=== PATIENT | male | born 1945 | race Caucasian/White ===

== ENCOUNTER 2019-02-09 05:04 | Inpatient (IN) | payer MEDICARE ==
[~2019-02-09] VITALS: Ht 170.2 cm; Wt 89.1 kg
--- NOTE | 2019-02-09 05:57 | NUR ---
Utilization Review Note Called the [facility] services number for pre auth after hours UR for admission, , Provided screener clinical with facility and physician tax ID. Auth was given for 3 days through 02-11-19, with follow up review and or discharge 02-14-19, to Alcira Schaefer [phone] [id number]. Authorization approval number [id number], Screener states we are in network, and approved for in network admit. VM left for Alcira Schaefer for follow up on admission info and continued stay.
--- NOTE | 2019-02-09 06:04 | NUR ---
Admission Note with Justification for Admission to [facility] Patient admitted to [facility] for protective oversight for emergency stabilization of acute psychiatric crisis. Pt admitted from: Hospital ER Mode of arrival: EMS Accompanied By: EMS Precipitating behaviors that initiated intake and admission: Pt went fishing in December and sustained many tick bites resulting in [place] Spotted Fever, pt sustained significant neurologic deficits from these bites. Gait disturbance, diminished strength, loss of memory, decreased cognition, confusion, agitation, psychosis, also has some equilibrium problems. Pt has had severe agitation with threatening behavior toward and family. Pt was still driving recently, took his car to a football game in a neighboring town, but ended up in [place] found driving around by PD. Pt was making multiple threatening phone calls to the [facility] where he sustained the tick bites, and also to his previous boss. He had been calling his boss multiple times a day harassing him, making threatening statements that he was going to shital them for firing him. Is grandiose and tangential with the [facility] and his employer. His is fearful of him, he was getting increasingly violent with her, throwing files at her posturing but never hitting her. He has had vacillation in sleep and appetite sometimes going days without eating sleeping or drinking. Description of failure of out patient attempts at stabilization in previous setting list behavior and medication trials: Pt was in ED twice in the last week for similar complaints. Behaviors and assessment findings upon admission: Pt arrives to unit alert and oriented but is tangential, with flight of ideas, grandiose, hyperverbal, suspicious and paranoid. He claims that Chi commands him to do things from inside his head, tells him to perform good deeds. He paid 800$ for weather stripping and labor for someone to install into the small fishing cabins that he sustained the tick bites from. He felt compelled by the lord to do this for free, and to hire an drywall installer for the roofing sales representative of these small cabins. The resort roofing sales representative is of no relation to him, and apparently is quite wealthy wearing giant maya rings and driving luxury vehicles, makes references to her being "connected" and to a big shot supervisor cook room who represents criminals and serial killers. Pt has poor insight and judgement, and seems as though he is having trouble with higher level executive functioning. Pt minimizes deficits greatly, making excuses for his recent failings. States he merely lost some energy but feels there is little really wrong with him. He claims his has wrongfully committed him twice now to psych facilities, in reality he spent 30 hours in the ED waiting for the DPOA to be enacted by 2 independent physicians. Family and ED psychiatrist suggest Bipolar 1, dementia, with psychosis. MRI shows white matter changes, small vessel ischemia, with cortical atrophy to indicate dementia. Plan: Admit for protective oversight for adjustment and stabilization of medications, behaviors and mood. Intense treatment regimen including groups, medication adjustments, therapy, consistent regimen for ADL's, self care, and sleep hygiene. Daily monitoring by Inpatient staff, Psychiatry, and Medical Physician.
[2019-02-09 06:17] VITALS: BP 159/76
[2019-02-09] MEDS ORDERED: MAGNESIUM HYDROXIDE 2,400 MG/30 ML ORAL.SUSP. PO PRN (06:45)
[2019-02-09] MEDS ORDERED: ACETAMINOPHEN 325 MG TABLET PO PRN (06:45)
[2019-02-09] MEDS ORDERED: MAG HYDROX/AL HYDROX/SIMETH 30 ML ORAL.SUSP PO PRN (06:45)
[2019-02-09] MEDS ORDERED: METHYL SALICYLATE/MENTHOL TOPICAL OINTMENT 57GM TUBE. TP PRN (06:45)
[2019-02-09 07:45] LABS: BASO % 1 % (0-3); EOS # 0.2 x10^3/uL (0.0-0.7); EOS % 2 % (0-3); HEMATOCRIT 40.5 % (39.0-53.0); HEMOGLOBIN 13.8 g/dL (13.0-17.5); LYMPH # 2.1 x10^3/uL (1.0-4.8); LYMPH % 23 % (24-48); MEAN CORPUSCULAR HEMOGLOBIN 31 pg (25-35); MEAN CORPUSCULAR HGB CONC 34 g/dL (31-37); MEAN CORPUSCULAR VOLUME 90 fL (79-100); MONO # 0.7 x10^3/uL (0.0-1.1); MONO % 8 % (0-9); NEUT % 66 % (31-73); PLATELET COUNT 197 x10^3/uL (140-400); RED BLOOD COUNT 4.48 x10^6/uL (4.30-5.70); RED CELL DISTRIBUTION WIDTH 14.3 % (11.5-14.5)
[2019-02-09 07:54] LABS: ALBUMIN 3.1 g/dL (3.4-5.0); CALCIUM 8.4 mg/dL (8.5-10.1); CREATININE 0.9 mg/dL (0.7-1.3); GFR 82.5; MAGNESIUM 2.1 mg/dL (1.8-2.4); POTASSIUM 3.7 mmol/L (3.5-5.1); TOTAL BILIRUBIN 0.4 mg/dL (0.2-1.0); TOTAL PROTEIN 6.1 g/dL (6.4-8.2)
[2019-02-09 07:55] LABS: VAL ACID 35 mcg/mL (50-100)
--- NOTE | 2019-02-09 09:00 | NUR ---
Patient is in the dining room for assessments and medications. He is A&O x4. Takes his meds whole. 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
[2019-02-09] MEDS ORDERED: TRAZ-120 PO (09:07)
[2019-02-09] MEDS ORDERED: SIMV20TA18 PO (09:07)
[2019-02-09] MEDS ORDERED: DIVA125C2 PO (09:07)
[2019-02-09] MEDS ORDERED: SERT50TA PO (09:07)
[2019-02-09] MEDS ORDERED: ASPI325T8 PO (09:07)
[2019-02-09] MEDS ORDERED: AMLO5TAB10 PO (09:07)
[2019-02-09] MEDS ORDERED: TAMS0.4C97 PO (09:07)
[2019-02-09] MEDS ORDERED: QUET25TA5 PO (09:07)
[2019-02-09] MEDS ORDERED: METF500T16 PO (09:07)
[2019-02-09] MEDS ORDERED: amLODIPine BESYLATE 5 MG TABLET PO ONE (09:15)
[2019-02-09] MEDS ORDERED: SERTRALINE 50 MG TABLET. PO SCH (09:30)
[2019-02-09] MEDS ORDERED: TAMSULOSIN 0.4 MG CAP.ER.24H. PO SCH (09:30)
[2019-02-09] MEDS: ASPIRIN 325 MG TABLET PO SCH (10:38)
--- NOTE | 2019-02-09 11:00 | NUR ---
PSYCHOSOCIAL ASSESSMENT ADMISSION DATE: 02/09/19 CONTACT INFORMATION: DPOA/Guardian Contact Name: Yelena Loaiza Contact Address: [address] [place] [address]; [place] [address] Contact Phone #: ETHNIC ORIGIN: REASONS FOR ADMISSION: Agitated Confusion/Disoriented Delusions Hallucinations ADDITIONAL ADMISSION COMMENTS: According to the intake, pt was admitted to the [facility] ED for agitation, aggression, not eating or sleeping, anxious, making threats towards , hallucinations, delusions, harassing his ex-boss and driving to [place]. REASON FOR ADMISSION IN PATIENT/FAMILY'S OWN WORDS: Since the tic bites, pt has been showing an increase in behaviors. PATIENT/FAMILY EXPECTATIONS FOR ADMISSION: Behavior and medication stabilization. LIVING SITUATION: Patient lives with: Spouse Other living arrangements: Contact Name: Contact Address: [address] [place] [address]; [place] [address] Contact Phone #: Contact Fax #: FAMILY RELATIONS: Marital Status: # of Marriages: 1 # of Children: 2 [facility] Family Support: Concerned Cooperative Involved in DC Planning Additional Comments r/t Family: Pt has been to his Chad for 51 years. Chad was cm in high school and pt just started in the [employer]. Together the 2 have 2 children and reports that pt has provided a great life for the family. SIGNIFICANT PSYCHIATRIC/MEDICAL HISTORY: Psychiatric/Treatment History: This is pt first psychiatric stay on [facility]. NO prior admissions have been noted per pt and pt . Pertinent Family History: Pt dtr has been diagnosed with Bipolar D/O. Pt does not have any further psych dx but medical concerns as most of his family have passed due to lung disease. Pt did report some suspicion that pt father was diagnosed later in life with having Dementia. HISTORICAL DATA: Childhood Environment: Other-see below Childhood Environment Additional Comments: Pt is 1 of 6 siblings (1 brother, 4 sisters). Pt siblings are all living but 1 sister who due to lung disease. Pt mother at the age of 74 due to a lung condition and his father at age 94. Psychological Abuse: None Additional Comments: Pt reports that pt has never been physical; however, as of late, pt is becoming more verbally aggressive and threats of physical. 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 service: [employer] for 6 years Yazidism background: No preference Sexual orientation: Heterosexual Educational Level: Graduated 12th grade in high school. Past/Present Interests/Hobbies: Fishing Financial support/resources: Social Security Monthly income: Person handling finances: Pt handles all finances at this time. Do you have a history of legal problems: N Cultural considerations: None SOCIAL RELATIONSHIPS-CURRENT/PAST: Psychiatrist: PCP: Dr. Lemon Counselor/Therapist: [facility]: Support Group: Enterprise Application Developer/Mental Health Counselor: Other relationships: Had [facility]; cancelled services d/t behaviors. STRENGTHS & WEAKNESSES: Patient's strengths: Good family support Good verbal skills Ambulatory Other patient strengths: Patient's weaknesses: Impulsive Poor relationships Verbally Aggressive Other patient weaknesses: PRELIMINARY PLAN OF TREATMENT: Preliminary plan: Dec. Hallucination/Delus Promote Coping Skill Improved Social Skills Monitor Med Effects Dec. Outbursts Other preliminary treatment comments: DISCHARGE PLANNING: Discharge planning/disposition: Other Additional discharge needs identified: Pt is questioning placement as she is concerned that she may not be able to handle pt behaviors; but also wants to give him a chance once medications are stable. NICOLASA will continue to work with pt and pt on this matter. ADDITIONAL INFORMATION: Other Pertinent Data: SW spoke with pt and pt to complete PSA. Pt at this time is very needy and requesting to make a lot of phone calls so that he can finalize business deals. SW did encourage pt to focus more on the program and being here as he, more than likely, needs to have a break from work and get back on track. Pt and pt both agree that pt has not been the same since his fishing trip and getting the tic bites. Pt reports that pt employers are done with pt as he has caused a lot of grief in the office and attempted to make deals that were not appropriate. She reports that they told him he was on a leave of absence, but one of his contractors told him to never call back again. 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 Pt reports that he bought a new car (a Mazda) in which is not his style and wants to return it. Pt confirms that pt brought a Mazda a month ago and they have made 1 car payment on it. She plans to have the car returned as pt has been driving and causing trouble for others. Pt is also banned from a fishing resort that he likes to go to due to his behaviors. Pt reports since the tic bites, pt has been more aggressive verbally but has not physically assaulted anyone. Pt reports that he his always mad at her because she will not "follow his demands" and has lost his friendships over such poor behavior. Pt did wonder about possible Dementia as she reports in the last year, pt had difficulty recalling, but figured it to be potential beginning stages. Pt reports that pt has a LTC policy that can pay up to $8k per month for placement and they do have a substantial amount in savings. Pt is looking for recommendations, while SW explained that with pt insurance, pt will have to move quickly as the minute reviews are completed and they do not feel pt is appropriate for placement, they will want pt to discharge RIC. Pt plans to meet with their senior director of global commercial technology solutions and will also participate in tx team on .
--- NOTE | 2019-02-09 11:45 | NUR ---
Patient asked staff for a blanket out of the warmer. He was told that he could have one from the dryer in a little while and that in the meantime he could use one of the several blankets that were in his room. He became angry, throwing all of his blankets on the floor and yelling "I want a fucking blanket from the warmer NOW." He then left his room and began to run down the schroeder towards the day room, continuing to yell about the blankets. Staff member intercepted him before he reached the day room and told him that if he couldn't control his temper that he could either return to his room or [facility] He continued advancing into the day room. Staff member intervened, trying to guide patient to turn around. Patient back handed staff on the arm, yelling "Don't hit me." [facility] He then began knocking on the nurses station. This financial writer went out to the patient to give him his medications. He stated "I don't belong here. My put me in another psych [facility] last night against my will. You need to get my things and let me go downstairs. I need to call my clients and my . I want to talk to the head of this hospital because I am gonna shital." This financial writer reminded patient that he was actually in an ED last night and that it was not going to be possible for him to go anywhere at this time. He continued to say "My dad told me that if a woman wants to hit like a man then she's gonna get hit like a man. If that pink demon comes anywhere near me again, I will lay her out." This financial writer told the patient that he needed to refrain from putting his hands on any of the patients or staff. Patient was given a PRN Zydis 2.5mg at that time along with his 1200 meds.
[2019-02-09] MEDS: metFORMIN 500 MG TABLET PO SCH (11:48)
[2019-02-09] MEDS: QUEtiapine 25 MG TABLET. PO SCH ×2 (12:12→17:44)
[2019-02-09 13:24] LABS: THYROID STIM HORMONE (TSH) 2.131 uIU/mL (0.358-3.740)
--- NOTE | 2019-02-09 13:41 | NUR ---
Per request of hospital MARINE PROPULSION TECHNICIAN, follow up call placed to [facility] for benefits information and to confirm authorization that was provided earlier this date. Call reference number of [id number], [facility] has a Medicare advantage HMO plan with a $295.00 co-pay on days 1-5 and a $0 co-pay for days 6-90 with a maximum out of pocket expense of $5900.00 of which $180.00 has been met. When this worker inquired about [facility] being out of network, was forwarded to the clinical intake steam meter reader to inquire about an "emergency waiver" for hospital admission. Call reference for this call was [id number]. Explained to clinical intake steam meter reader that patient had been admitted to [facility] on this date and was provided an authorization number of [id number] but concern is [facility] is out of network. Clinical steam meter reader indicated she has noted why patient has utilized an out of network provider and that this will automatically be processed for the emergency waiver.
--- NOTE | 2019-02-09 14:00 | NUR ---
Patient chose to eat his lunch [place]. 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 Redirected for a very short time, then he is back to the nurses station asking the same things.
--- NOTE | 2019-02-09 15:13 | NUR ---
Pt is wandering and pacing the unit and exit seeking, he is demanding to go downstairs, he is demanding to call his . When staff attempted to redirect pt he stated "youre on my list and youre matty youre not on this floor right now." Pt stated to social work instructor that he would "hurt her." If he saw the ROLL SCALE WORKER alone. Dr. Koo paged new orders to change PRN zyprexa zydis to 5mg q 2 hours max dose 15mg in 24 hours. Ativan 0.5mg q 2 hours PRN max dose 1.5mg in 24 hours
[2019-02-09] MEDS: LORazepam 0.5 MG TABLET PO PRN (15:24)
--- NOTE | 2019-02-09 15:26 | NUR ---
[address] would not scan
[2019-02-09 15:53] VITALS: BP 145/73
--- NOTE | 2019-02-09 16:17 | NUR ---
Patient continues to knock on the nurses station window. Staff removed patients notebook from him because he kept making threats to staff. He keeps asking to have it back. Staff told him that he couldn't have it at this time. He stated "You can't tell me what I can and can't do." Staff told patient that he needed to stop making threats. He stated " I don't make threats, I just do them."
--- NOTE | 2019-02-09 18:32 | NUR ---
Discussed ordering EKG with Dr. Koo to establish baseline related to psychotropic medication useage. Ordered for 02/[address] Koo.
[2019-02-09] MEDS: TAMSULOSIN 0.4 MG CAP.ER.24H. PO SCH (21:00)
[2019-02-09] MEDS: SIMVASTATIN 20 MG TABLET PO SCH (21:00)
[2019-02-09] MEDS: traZODone 50 MG TABLET. PO SCH (21:00)
[2019-02-09] MEDS: DIVALPROEX 125 MG CAP.SPRINK PO SCH (21:00)
--- NOTE | 2019-02-09 21:38 | PDOC ---
Exam Note: Leo Note: Please also refer to the separate dictated note~for this date of service dictated separately. Discussed the patient with Nursing staff reviewed the chart.~Reviewed interim history and current functioning. Reviewed vital signs,~Labs/ Radiology~and current medications noted below. Continue current treatment with the changes noted in the dictated addendum note Assessment: Vital Signs/I&O: Vital Signs Date Time Temp Pulse Resp B/P (MAP) Pulse Ox O2 Delivery O2 Flow Rate FiO2 02/09/19 15:53 97.4 67 20 145/73 (97) 97 02/09/19 06:17 Room Air I & O 02/08/19 02/08/19 02/09/19 15:00 23:00 07:00 Intake Total 0 ml Balance 0 ml Labs: Laboratory Tests Test 02/09/19 07:19 02/09/19 07:37 02/09/19 19:07 White Blood Count 9.0 x10^3/uL (4.0-11.0) Red Blood Count 4.48 x10^6/uL (4.30-5.70) Hemoglobin 13.8 g/dL (13.0-17.5) Hematocrit 40.5 % (39.0-53.0) Mean Corpuscular Volume 90 fL (79-100) Mean Corpuscular Hemoglobin 31 pg (25-35) Mean Corpuscular Hemoglobin Concent 34 g/dL (31-37) Red Cell Distribution Width 14.3 % (11.5-14.5) Platelet Count 197 x10^3/uL (140-400) Neutrophils (%) (Auto) 66 % (31-73) Lymphocytes (%) (Auto) 23 % (24-48) L Monocytes (%) (Auto) 8 % (0-9) Eosinophils (%) (Auto) 2 % (0-3) Basophils (%) (Auto) 1 % (0-3) Neutrophils # (Auto) 6.0 x10^3uL (1.8-7.7) Lymphocytes # (Auto) 2.1 x10^3/uL (1.0-4.8) Monocytes # (Auto) 0.7 x10^3/uL (0.0-1.1) Eosinophils # (Auto) 0.2 x10^3/uL (0.0-0.7) Basophils # (Auto) 0.0 x10^3/uL (0.0-0.2) Erythrocyte Sedimentation Rate 3 (0-15) Sodium Level 142 mmol/L (136-145) Potassium Level 3.7 mmol/L (3.5-5.1) Chloride Level 106 mmol/L (98-107) Carbon Dioxide Level 28 mmol/L (21-32) Anion Gap 8 (6-14) Blood Urea Nitrogen 15 mg/dL (8-26) Creatinine 0.9 mg/dL (0.7-1.3) Estimated GFR (Cockcroft-Gault) 82.5 BUN/Creatinine Ratio 17 (6-20) Glucose Level 152 mg/dL (70-99) H Calcium Level 8.4 mg/dL (8.5-10.1) L Magnesium Level 2.1 mg/dL (1.8-2.4) Iron Level 58 ug/dL (65-175) L Total Iron Binding Capacity 227 ug/dL (250-450) L Iron Saturation 26 % (15-34) Total Bilirubin 0.4 mg/dL (0.2-1.0) Aspartate Amino Transferase (AST) 18 U/L (15-37) Alanine Aminotransferase (ALT) 24 U/L (16-63) Alkaline Phosphatase 51 U/L (46-116) Total Protein 6.1 g/dL (6.4-8.2) L Albumin 3.1 g/dL (3.4-5.0) L Albumin/Globulin Ratio 1.0 (1.0-1.7) Triglycerides Level 43 mg/dL (0-150) Cholesterol Level 85 mg/dL (0-200) LDL Cholesterol, Calculated 40 mg/dL (0-100) VLDL Cholesterol, Calculated 8 mg/dL (0-40) Non-HDL Cholesterol Calculated 48 mg/dL (0-129) HDL Cholesterol 37 mg/dL (40-60) L Cholesterol/HDL Ratio 2.0 Thyroid Stimulating Hormone (TSH) 2.131 uIU/mL (0.358-3.740) Valproic Acid Level 35 mcg/mL (50-100) L Valproic Acid Last Dose Date 02/08/19 Valproic Acid Last Dose Time 2100 Glucose (Fingerstick) 127 mg/dL (70-99) H 116 mg/dL (70-99) H Current Medications: Meds: Current Medications Medications (Trade) Dose Ordered Sig/Janet Route PRN Reason Start Time Stop Time Status Last Admin Dose Admin Olanzapine (ZyPREXA ZYDIS) 2.5 mg PRN Q2HR PRN PO PSYCHOSIS 02/09/19 06:45 02/09/19 15:18 DC 02/09/19 11:45 Aspirin (Cricket Aspirin) 325 mg DAILY PO 02/09/19 09:30 02/09/19 10:38 Metformin HCl (Glucophage) 500 mg BIDWMEALS PO 02/09/19 17:00 02/09/19 11:48 Quetiapine Fumarate (SEROquel) 25 mg Q6HRS PO 02/09/19 12:00 02/09/19 18:31 DC 02/09/19 17:44 Sertraline HCl (Zoloft) 50 mg DAILY PO 02/09/19 09:30 02/09/19 18:31 DC 02/09/19 10:39 Amlodipine Besylate (Norvasc) 5 mg 1X ONCE PO 02/09/19 09:15 02/09/19 09:16 DC 02/09/19 10:39 Olanzapine (ZyPREXA ZYDIS) 5 mg PRN Q2HR PRN PO PSYCHOSIS 02/09/19 15:19 02/09/19 15:24 Lorazepam (Ativan) 0.5 mg PRN Q2HR PRN PO ANXIETY / AGITATION 02/09/19 15:19 02/09/19 15:24 I have reviewed the current psychotropics carefully including drug interactions. Risk benefit ratio favors no change other than as noted in my dictated progress note. GUERO KRUEGER MD Feb 09, 2019 21:38
--- NOTE | 2019-02-09 22:08 | NUR ---
Nursing Note Pt asleep barely awakens to my assessment. laying in bed on his right side. Will attempt to medicate once he arouses.
[2019-02-09 23:07] LABS: THYROXINE 5.3 ug/dL (4.5-12.0)
[2019-02-10 05:11] VITALS: BP 135/76
--- NOTE | 2019-02-10 08:01 | NUR ---
Patient in dining room and is being intrusive with peers. He is loudly complaining that "this place doesn't care for veterans, they treat us like dogs". He is approaching male peers and attempting to "rally them into a revolt" and wanting them to complain to their congressman and return to the [place]. He is fixated on being a , the and that men are superior to women. When staff attempted to verbally redirect them he became very rude and verbally demeaning to all the "women" in the room. Patient was disruptive and not able to be redirected in the dining room so he was assisted to the [facility] to eat his breakfast alone. In the [facility] he began calling the female COIN MACHINE MECHANIC a dumb broad and other insults. Patient behaviors and sarcasm escalating in hallway. Provided patient PRN zydis and PRN ativan per order for agitation/aggression towards staff. Will continue to monitor. Addendum: 02/10/19 at 1046 by CESAR HIGGINBOTHAM RN PRN medications effective. Patient has calmed down and is currently sleeping on the mattress in the quiet room with the door open.
[2019-02-10] MEDS: amLODIPine BESYLATE 5 MG TABLET PO SCH (08:23)
[2019-02-10] MEDS: LORazepam 0.5 MG TABLET PO PRN ×2 (08:23→19:57)
[2019-02-10] MEDS: risperiDONE 0.25 MG TABLET. PO SCH ×3 (08:23→17:14)
[2019-02-10] MEDS: metFORMIN 500 MG TABLET PO SCH ×2 (08:24→17:14)
[2019-02-10] MEDS: TAMSULOSIN 0.4 MG CAP.ER.24H. PO SCH (08:24)
[2019-02-10] MEDS: DIVALPROEX 125 MG CAP.SPRINK PO SCH ×2 (08:24→19:57)
[2019-02-10] MEDS: ASPIRIN 325 MG TABLET PO SCH (08:24)
--- NOTE | 2019-02-10 10:18 | NUR ---
WEEKLY NOTE: Pt , Yelena Hartman, participated in tx team via telephone. Yelena reports that she just spoke to nursing about pt bx and is appalled about his actions. Pt reports that since the tic bites, he's abrasive, easily agitated, intrusive and odd behaviors within their home and the neighborhood. Pt is eating 75-100% of meals and sleeping on average 6 hours. Pt will have his Seroquel discontinued and start Risperdal. Pt is looking for placement and SW will guide her through the process.
--- NOTE | 2019-02-10 10:39 | NUR ---
Nurse spoke with patients at length regarding patients current behaviors and medication changes. Spouse expressed concern over patients mental status changes, which she reported began in jan 2019 and have escalated since then. During conversation it was revealed that many of the adverse behaviors we have observed were also happening in the home. According to the spouse, these behaviors are very far from patients normal baseline. After rounds last night, Dr. Koo made some medication changes. He discontinued the seroquel and zoloft and started Risperdal 0900,1300,1700. Medication changes were reviewed with /DPOA.
--- NOTE | 2019-02-10 14:24 | NUR ---
Patient asking to make phone calls to his "clients". Patient has call restrictions noted in his consents in chart. Nurse advised patient he was only allowed to call his and he said "I won't call her for a long time" in an angry voice and then walked away.
[2019-02-10 15:34] VITALS: BP 144/71
--- NOTE | 2019-02-10 18:02 | HP ---
ADMIT DATE: 02/09/2019 This late entry 02/09/2019 covers elements not covered in my initial note. I met with the patient evening of 02/09/2019. Previously discussed with Eladia WALDROP around 2:00 a.m. on 02/09/2019 after the patient was referred to us from [facility] Emergency Room where he presented with his family on account of significant psychotic symptoms, pato with some short-term memory deficits all of which had exacerbated since he developed Jen[place] spotted fever post-tick bites on 12/12/2018 while he had gone fishing in [place]. The patient had been in the Emergency Room since 02/07/2019. He was agitated, aggressive, paranoid, threatening his verbally. He was increasingly anxious, not eating or sleeping. Symptoms were unmanageable, dangerous, out of control, resulting in this referral for psychiatric stabilization. The stated the patient has been extremely grandiose, talking to strangers very different from how he typically was baseline. Intrusive walking into the neighbor's homes without knocking or asking permission, extremely aggressive verbally with his and she reported "he is not the man he was." Reportedly, he has also been harassing his ex-boss driving to [place], getting confused, unaware at times where he is. Other times reasonably oriented. The DPOA status was activated and he was referred for inpatient psychiatric stabilization. CHIEF COMPLAINT: "I need to leave." HISTORY OF PRESENT ILLNESS: The patient according to the has always had a rather abrasive personality, but over the past 1 year he has been more manic, grandiose, hyperverbal, irritable, angry. This has worsened significantly since the tick bite of 12/12/2018 and the Jenner spotted fever diagnosis. Organic workup including imaging studies have been unremarkable. He has had significant sleep disturbance, some appetite disturbance. No active suicidal or homicidal ideation though the way he has been getting confused and driving off he has well posed a danger to himself and others. PAST PSYCHIATRIC HISTORY: As above. MEDICAL HISTORY: Positive for type 2 diabetes mellitus, hypertension, hyperlipidemia, Jenner spotted fever, BPH. CODE STATUS: Full code. ALLERGIES: Negative. DIET: Regular, diabetic, takes medications whole, ambulates independently. CURRENT PSYCHOTROPICS: Depakote 250 b.i.d. The patient was on Seroquel at admission and this is being changed to Risperdal, trazodone 50 mg at bedtime. He was also on Zoloft, which is being discontinued consequent to his pato. FAMILY HISTORY: Noncontributory. SOCIAL HISTORY: The patient is . 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 No alcohol or drug abuse, physical, sexual or elder abuse history is noted. He is not known to be a perpetrator. REACTION TO HOSPITALIZATION: The patient is resistive to this, but able to understand the need for this consequent to his mental status changes, "I want to get my mind better." REVIEW OF SYSTEMS: No CV, , pulmonary, eye, ENT system symptoms on review. MENTAL STATUS EXAMINATION: The patient was seen individually and had been called by the nursing staff several times during the day on 02/09/2019 due to his marked agitation, aggression. He was threatening to punch staff and hurt them. He did receive PRNs and then was calmer in the evening, quite sedated as I met with him. Speech despite this can be little pressured. Abstraction fair, computation impaired, language function intact, attention span short. Mood and affect remains labile and grandiose at times, paranoid, suspicious. LABORATORY DATA: Reviewed. IMPRESSION: Bipolar disorder, manic with psychotic features; anxiety disorder, unspecified; impulse control disorder, unspecified. Rest diagnoses as noted above. PLAN: Admit to Geropsychiatry Unit at [facility]. I will see the patient daily individually from a psychiatric standpoint. Medical followup per Dr. Clancy. We will also have a Neurology consult with Dr. Ding given his mental status changes with Jenner spotted fever. Change the Seroquel to Risperdal 0.25 mg 3 times a day. Check labs level on the Depakote. Adjust as clinically indicated. Estimated length of stay 10-12 days. DISPOSITION: Will have to be decided once he is stabilized. MAN Pamela KRUEGER MD DR: GERALDINE/steven JOB#: [id number] / [id number]
[2019-02-10] MEDS: SIMVASTATIN 20 MG TABLET PO SCH (19:57)
[2019-02-10] MEDS: traZODone 50 MG TABLET. PO SCH (19:57)
--- NOTE | 2019-02-10 21:35 | PDOC ---
Exam Note: Leo Note: Please also refer to the separate dictated note~for this date of service dictated separately.~Patient seen individually. Discussed the patient with Nursing staff reviewed the chart.~Reviewed interim history and current functioning. Reviewed vital signs,~Labs/ Radiology~and current medications noted below. Continue current treatment with the changes noted in the dictated addendum note Assessment: Vital Signs/I&O: Vital Signs Date Time Temp Pulse Resp B/P (MAP) Pulse Ox O2 Delivery O2 Flow Rate FiO2 02/10/19 15:34 98.0 84 16 144/71 (95) 98 02/09/19 06:17 Room Air I & O 02/09/19 02/09/19 02/10/19 15:00 23:00 07:00 Intake Total 840 ml 60 ml 240 ml Balance 840 ml 60 ml 240 ml Labs: Laboratory Tests Test 02/10/19 07:55 Glucose (Fingerstick) 106 mg/dL (70-99) H Current Medications: Meds: Current Medications Medications (Trade) Dose Ordered Sig/Janet Route PRN Reason Start Time Stop Time Status Last Admin Dose Admin Amlodipine Besylate (Norvasc) 5 mg DAILY PO 02/10/19 09:00 02/10/19 08:23 Risperidone (RisperDAL) 0.25 mg TID@0900,1300,1700 PO 02/10/19 09:00 02/10/19 17:14 I have reviewed the current psychotropics carefully including drug interactions. Risk benefit ratio favors no change other than as noted in my dictated progress note. Diagnosis: Problems: (1) Bipolar disorder, current episode manic severe with psychotic features (2) Anxiety disorder (3) Impulse control disorder GUERO KRUEGER MD Feb 10, 2019 21:35
--- NOTE | 2019-02-11 00:24 | NUR ---
Patient was in room at time of medication administration and assessments. Patient was calm, cooperative and compliant that that time. Patient was argumentative with some of the CNAs and taking his pants off in the schroeder. Patient was instructed to put them back on and go back to his room. Patient has been wandering all evening. Asked to take a shower so CNAs assisted him with such in an effort to help him sleep for the evening. No other notable behaviors at this time. Addendum: 02/11/19 at 0027 by NILES SHRESTHA RN PRN Ativan given with HS medications (reported patient is manipulative, has delusions, gets aggravated/rude/yelling) Patient states he knows that he needs his medications. PRN warranted for above behaviors/
[2019-02-11 05:31] VITALS: BP 157/84
--- NOTE | 2019-02-11 08:03 | CONS ---
DATE OF CONSULTATION: 02/10/2019 REASON FOR CONSULTATION: Medical management. HISTORY OF PRESENT ILLNESS: The patient is a 73-year-old male patient who was referred to the [facility] from the Emergency Department of [facility] on account of being extremely agitated, aggressive related to recent [place] spotted fever, diagnosed with paranoia. He is not eating, not sleeping. He is anxious, making threats towards his , hallucinating, having delusions harrassing his ex-boss, driving to [place] for no reason, has been demanding rude, all this in a background of psychosis, unspecified bipolar with psychotic features, possible cognitive disorder. PAST MEDICAL HISTORY: Significant for type 2 diabetes, hypertension, hyperlipidemia, benign prostatic hypertrophy, recent [place] spotted fever that he acquired while on a fishing trip to [place]. FAMILY HISTORY: Unremarkable. SOCIAL HISTORY: He is , has a son and a daughter, does not smoke, drinks alcohol occasionally. Does not use any drugs. 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 ALLERGIES: He has no known drug allergies. MEDICATIONS: He is currently on following medications: He is on Flomax 0.4 mg at bedtime, simvastatin 20 mg at bedtime, amlodipine besylate 5 mg once a day, aspirin 325 mg once a day, divalproex sodium 250 mg twice a day, sertraline 50 mg daily, trazodone 50 mg at bedtime, quetiapine fumarate for Seroquel 25 mg every 6 hours, metformin 500 mg twice a day. PHYSICAL EXAMINATION: GENERAL: On examining him, he looked well and was clearly in no apparent respiratory distress. No pallor, jaundice, cyanosis or thyromegaly. No jugular venous distention or limb edema. VITAL SIGNS: Her heart rate was 84, blood pressure was 144/71, temperature was 98, respiratory rate was 16, and oxygen saturation was 98%. HEAD, EYES, EARS, NOSE AND THROAT: Showed normocephalic, atraumatic. NECK: Supple. HEART: Showed normal first and second heart sounds with no gallop, rub or murmur. CHEST: Clear to auscultation. No crepitation or rhonchi. ABDOMEN: Distended, soft, nontender. NEUROLOGIC: He is awake, alert, responding appropriately. All cranial nerves intact. EXTREMITIES: He moves extremities without difficulty, ambulates without assistance or assistive devices. LABORATORY DATA: Showed a white cell count of 9000, hemoglobin 14, hematocrit 41, MCV 90, and platelet count of 197,000 with normal manual differential. His sedimentation rate was 3 mm per hour. Serum sodium 142, potassium 3.7, chloride 106, bicarbonate 28, anion gap of 8, BUN 15, creatinine 0.9, estimated GFR was 82 mL per minute, his glucose 152. Hemoglobin A1c was 6%. Calcium was 8.4, magnesium 2.1. Total bilirubin, AST, ALT, alkaline phosphatase were normal. Total protein was 6.1, albumin 3.1. Serum triglycerides were 43, total cholesterol 85, LDL was 40, the HDL cholesterol was 37 and cholesterol to HDL cholesterol was 2, B12 was 533 pg/mL. His 25-hydroxy vitamin D 65 ng/mL. His TSH, T3, total T4, total T3 are all within normal range. Serum iron was 58, TIBC was 227 and iron saturation was 26. His valproic acid was 35 ng/mL and his treponema pallidum antibodies were nonreactive. IMPRESSION: In summary, this is a 73-year-old male patient who was referred from the Emergency Department of [facility] on account of being agitated, aggressive, this to be related to recent [place] spotted fever, diagnosis of paranoia, is not eating, not sleeping, anxious, making threats towards his , hallucinating and delusional, harrassing the ex-boss, driving to [place] for no reason and all this in a background of psychosis, unspecified bipolar disorder with psychotic features and possible cognitive impairment. Medically, he seems to be all in all stable. All his vital signs and lab works are well within acceptable range. I obviously will follow all his lab works and make any necessary recommendation. Thank you, Dr. Koo for allowing me to participate in the care of this patient. LEONIDES KRAUS MD DR: GRETCHEN/steven JOB#: [id number] / [id number]
[2019-02-11] MEDS: metFORMIN 500 MG TABLET PO SCH ×2 (08:07→16:42)
[2019-02-11] MEDS: DIVALPROEX 125 MG CAP.SPRINK PO SCH ×2 (08:08→19:54)
[2019-02-11] MEDS: ASPIRIN 325 MG TABLET PO SCH (08:08)
[2019-02-11] MEDS: amLODIPine BESYLATE 5 MG TABLET PO SCH (08:08)
[2019-02-11] MEDS: TAMSULOSIN 0.4 MG CAP.ER.24H. PO SCH (08:08)
[2019-02-11] MEDS: risperiDONE 0.25 MG TABLET. PO SCH ×3 (08:09→16:43)
--- NOTE | 2019-02-11 10:50 | NUR ---
Patient was in the dining room during morning rounding, took medications, allowed for morning assessment. Patient has been calm, able to redirect. Patient did ask to use this morning to call his old job. Received on report that patient is no longer employed by that job and the employer asked patient not to call there anymore earlier this week. Patient said he slept well, no agitation noted at this time. Will continue to monitor.
[2019-02-11] MEDS: LORazepam 0.5 MG TABLET PO PRN ×3 (12:38→17:25)
--- NOTE | 2019-02-11 12:44 | NUR ---
Patient was a little anxious, trying to tell patient's during lunch that "the pumpkin doesn't like [place]'s and is part of the [employer]. PRN atelvis given @9322. Patient is trying to meet with social work now, will continue to monitor.
[2019-02-11] MEDS ORDERED: DIVALPROEX 125 MG CAP.SPRINK PO SCH (13:00)
--- NOTE | 2019-02-11 15:03 | NUR ---
Patient has been very anxious, wanting nails to be cut. Wanting to talk to the forensic social worker and knocking on the office door repeatedly. Patient is being suspicious. Unable to scan wrist band at this time. PRN Ativan and Zyprexa given @1500. Patient is pacing halls. Will continue to monitor.
[2019-02-11 15:56] VITALS: BP 145/75
--- NOTE | 2019-02-11 16:16 | NUR ---
SW attempted multiple times to complete pt concurrent review for continued stay. SW attempted first at 1454 and again at 1540 and left message for Alcira Schaefer at [phone]. It was noted on her voicemail that the office is open until 1700 LIFE CLAIMS EXAMINER. Also on the voicemail, a fax number for discharges was noted as ( [phone]. NICOLASA went ahead and printed out all of pt psychiatry and nursing notes to show pt behaviors on the unit, and faxed the number noted in Alcira's voicemail. The fax confirmation page as received and NICOLASA has kept the packet on her desk for future reference. Pt authorization number is [id number].
[2019-02-11] MEDS ORDERED: risperiDONE 0.5 MG TABLET. PO ONE (17:15)
--- NOTE | 2019-02-11 18:12 | NUR ---
Patient spoke to earlier on the phone, told patient that primary care dr is the one who sent him here. Patient was upset, wanting to call primary care doctor. Patient did go to dinner, PRN Ativan given @1725. Patient is now sleeping. Will continue to monitor.
[2019-02-11] MEDS: traZODone 50 MG TABLET. PO SCH (19:54)
[2019-02-11] MEDS: SIMVASTATIN 20 MG TABLET PO SCH (19:54)
--- NOTE | 2019-02-11 21:28 | PDOC ---
Exam Note: Leo Note: Please also refer to the separate dictated note~for this date of service dictated separately.~Patient seen individually. Discussed the patient with Nursing staff reviewed the chart.~Reviewed interim history and current functioning. Reviewed vital signs,~Labs/ Radiology~and current medications noted below. Continue current treatment with the changes noted in the dictated addendum note Assessment: Vital Signs/I&O: Vital Signs Date Time Temp Pulse Resp B/P (MAP) Pulse Ox O2 Delivery O2 Flow Rate FiO2 02/11/19 15:56 97.9 65 16 145/75 (98) 99 02/09/19 06:17 Room Air I & O 02/10/19 02/10/19 02/11/19 14:59 22:59 06:59 Intake Total 840 ml 480 ml 240 ml Balance 840 ml 480 ml 240 ml Labs: Laboratory Tests Test 02/11/19 07:31 02/11/19 16:41 Glucose (Fingerstick) 97 mg/dL (70-99) 102 mg/dL (70-99) H Current Medications: Meds: Current Medications Medications (Trade) Dose Ordered Sig/Janet Route PRN Reason Start Time Stop Time Status Last Admin Dose Admin Divalproex Sodium (Depakote Sprinkles) 500 mg BID PO 02/11/19 21:00 02/11/19 19:54 Divalproex Sodium (Depakote Sprinkles) 250 mg 1X PO 02/11/19 13:00 02/11/19 12:38 Risperidone (RisperDAL) 0.5 mg 1X ONCE PO 02/11/19 17:15 02/11/19 17:16 DC 02/11/19 17:25 I have reviewed the current psychotropics carefully including drug interactions. Risk benefit ratio favors no change other than as noted in my dictated progress note. Diagnosis: Problems: (1) Anxiety disorder (2) Impulse control disorder (3) Bipolar disorder, current episode manic severe with psychotic features GUERO KRUEGER MD Feb 11, 2019 21:28
--- NOTE | 2019-02-11 22:33 | NUR ---
Pt was sitting up in chair in the day room, sleeping at shift change. Pt calm but drowsy this evening. Pt cooperative with assessment and compliant with medications administered whole.
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
[2019-02-12 05:40] VITALS: BP 154/81
[2019-02-12] MEDS: ASPIRIN 325 MG TABLET PO SCH (08:02)
[2019-02-12] MEDS: DIVALPROEX 125 MG CAP.SPRINK PO SCH ×2 (08:02→20:34)
[2019-02-12] MEDS: metFORMIN 500 MG TABLET PO SCH ×2 (08:02→16:39)
[2019-02-12] MEDS: TAMSULOSIN 0.4 MG CAP.ER.24H. PO SCH (08:03)
[2019-02-12] MEDS: amLODIPine BESYLATE 5 MG TABLET PO SCH (08:03)
[2019-02-12] MEDS: risperiDONE 0.5 MG TABLET. PO SCH (08:03)
[2019-02-12] MEDS: LORazepam 0.5 MG TABLET PO PRN ×2 (08:56→11:55)
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
--- NOTE | 2019-02-12 12:01 | NUR ---
Patient approached another nurse and mentioned that he was "upset with certain care givers, also that he needed to leave right at noon." The nurse spoke to Dr. Koo, both Ativan and Zyprexa given @1155. Per Dr. Koo, a repeat Ativan has been ordered if needed. Patient is now in the dining room, will continue to monitor.
[2019-02-12] MEDS ORDERED: LORazepam 0.5 MG TABLET PO PRN (12:15)
--- NOTE | 2019-02-12 14:59 | NUR ---
Attempted to meet and complete Activity Therapy Assessment at 0930 and 1315; however, Pt. sleeping at both times.
[2019-02-12 15:39] VITALS: BP 148/80
[2019-02-12] MEDS: risperiDONE 0.25 MG TABLET. PO SCH (16:39)
[2019-02-12] MEDS: traZODone 50 MG TABLET. PO SCH (20:34)
[2019-02-12] MEDS: SIMVASTATIN 20 MG TABLET PO SCH (20:34)
[2019-02-12] MEDS ORDERED: traZODone 50 MG TABLET. PO PRN (22:45)
--- NOTE | 2019-02-12 23:15 | PDOC ---
Exam Note: Leo Note: Please also refer to the separate dictated note~for this date of service dictated separately.~Patient seen individually. Discussed the patient with Nursing staff reviewed the chart.~Reviewed interim history and current functioning. Reviewed vital signs,~Labs/ Radiology~and current medications noted below. Continue current treatment with the changes noted in the dictated addendum note Assessment: Vital Signs/I&O: Vital Signs Date Time Temp Pulse Resp B/P (MAP) Pulse Ox O2 Delivery O2 Flow Rate FiO2 02/12/19 15:39 97.4 67 18 148/80 (102) 98 02/09/19 06:17 Room Air I & O 02/11/19 02/11/19 02/12/19 15:00 23:00 07:00 Intake Total 720 ml 560 ml Balance 720 ml 560 ml Labs: Laboratory Tests Test 02/12/19 07:17 Glucose (Fingerstick) 105 mg/dL (70-99) H Current Medications: Meds: Current Medications Medications (Trade) Dose Ordered Sig/Janet Route PRN Reason Start Time Stop Time Status Last Admin Dose Admin Risperidone (RisperDAL) 0.5 mg DAILY PO 02/12/19 09:00 02/12/19 08:03 Risperidone (RisperDAL) 0.75 mg DAILYWSUP PO 02/12/19 17:00 02/12/19 16:39 I have reviewed the current psychotropics carefully including drug interactions. Risk benefit ratio favors no change other than as noted in my dictated progress note. Diagnosis: Problems: (1) Anxiety disorder (2) Impulse control disorder (3) Bipolar disorder, current episode manic severe with psychotic features GUERO KRUEGER MD Feb 12, 2019 23:15
--- NOTE | 2019-02-13 00:07 | NUR ---
Pt walking in hallway at shift change. Pt calm, interactive and appropriate this evening, no further agitation or verbal aggression noted thus far. Pt cooperative with assessment and compliant with medications administered whole.
[2019-02-13 05:50] VITALS: BP 120/72
[2019-02-13] MEDS: metFORMIN 500 MG TABLET PO SCH ×2 (08:13→16:54)
[2019-02-13] MEDS: ASPIRIN 325 MG TABLET PO SCH (08:13)
[2019-02-13] MEDS: risperiDONE 0.5 MG TABLET. PO SCH (08:13)
[2019-02-13] MEDS: TAMSULOSIN 0.4 MG CAP.ER.24H. PO SCH (08:13)
[2019-02-13] MEDS: amLODIPine BESYLATE 5 MG TABLET PO SCH (08:14)
[2019-02-13] MEDS: DIVALPROEX 125 MG CAP.SPRINK PO SCH ×2 (08:14→21:22)
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
--- NOTE | 2019-02-13 15:25 | NUR ---
Patient is in the dining room for assessments and medications. He is calm, cooperative and compliant. Still continuing to try to help his peers, but is able to be redirected today. Participated in groups today and spent a good amount of time in the day room. Denies pain, denies SI/HI.
[2019-02-13 15:41] VITALS: BP 138/81
[2019-02-13] MEDS: risperiDONE 0.25 MG TABLET. PO SCH (16:54)
--- NOTE | 2019-02-13 20:32 | PDOC ---
Exam Note: Leo Note: Please also refer to the separate dictated note~for this date of service dictated separately.~Patient seen individually. Discussed the patient with Nursing staff reviewed the chart.~Reviewed interim history and current functioning. Reviewed vital signs,~Labs/ Radiology~and current medications noted below. Continue current treatment with the changes noted in the dictated addendum note Assessment: Vital Signs/I&O: Vital Signs Date Time Temp Pulse Resp B/P (MAP) Pulse Ox O2 Delivery O2 Flow Rate FiO2 02/13/19 15:41 97.0 72 16 138/81 (100) 97 02/13/19 05:50 Room Air I & O 02/12/19 02/12/19 02/13/19 15:00 23:00 07:00 Intake Total 960 ml 240 ml 60 ml Balance 960 ml 240 ml 60 ml Labs: Laboratory Tests Test 02/13/19 07:26 02/13/19 17:00 Glucose (Fingerstick) 129 mg/dL (70-99) H 109 mg/dL (70-99) H Current Medications: I have reviewed the current psychotropics carefully including drug interactions. Risk benefit ratio favors no change other than as noted in my dictated progress note. Diagnosis: Problems: (1) Anxiety disorder (2) Impulse control disorder (3) Bipolar disorder, current episode manic severe with psychotic features GUERO KRUEGER MD Feb 13, 2019 20:32
[2019-02-13] MEDS: traZODone 50 MG TABLET. PO SCH (21:22)
[2019-02-13] MEDS: SIMVASTATIN 20 MG TABLET PO SCH (21:22)
--- NOTE | 2019-02-13 22:40 | NUR ---
Nursing Note The patient was confused and concerned about other patients while he was in the day room but was compliant and appropriate during this nurse while in his room. The patient took his medication whole.
[2019-02-14 06:12] VITALS: BP 149/65
[2019-02-14 07:26] LABS: BASO # 0.1 x10^3/uL (0.0-0.2); BASO % 1 % (0-3); EOS # 0.2 x10^3/uL (0.0-0.7); EOS % 3 % (0-3); HEMATOCRIT 43.1 % (39.0-53.0); HEMOGLOBIN 14.6 g/dL (13.0-17.5); LYMPH # 1.6 x10^3/uL (1.0-4.8); LYMPH % 18 % (24-48); MEAN CORPUSCULAR HEMOGLOBIN 31 pg (25-35); MEAN CORPUSCULAR HGB CONC 34 g/dL (31-37); MEAN CORPUSCULAR VOLUME 91 fL (79-100); MONO # 0.8 x10^3/uL (0.0-1.1); MONO % 9 % (0-9); NEUT # 6.3 x10^3uL (1.8-7.7); NEUT % 70 % (31-73); PLATELET COUNT 196 x10^3/uL (140-400); RED BLOOD COUNT 4.74 x10^6/uL (4.30-5.70); RED CELL DISTRIBUTION WIDTH 14.5 % (11.5-14.5); WHITE BLOOD COUNT 8.9 x10^3/uL (4.0-11.0)
[2019-02-14 07:37] LABS: ALBUMIN 3.2 g/dL (3.4-5.0); ALK PHOS 55 U/L (46-116); ALT (SGPT) 25 U/L (16-63); ANION GAP 11 (6-14); AST (SGOT) 17 U/L (15-37); BLOOD UREA NITROGEN 19 mg/dL (8-26); BUN/CREATININE RATIO 24 (6-20); CALCIUM 8.7 mg/dL (8.5-10.1); CARBON DIOXIDE 27 mmol/L (21-32); CHLORIDE 106 mmol/L (98-107); CREATININE 0.8 mg/dL (0.7-1.3); GFR 94.5; GLUCOSE 127 mg/dL (70-99); SODIUM 144 mmol/L (136-145); TOTAL BILIRUBIN 0.5 mg/dL (0.2-1.0); TOTAL PROTEIN 6.5 g/dL (6.4-8.2)
[2019-02-14 07:52] LABS: VAL ACID 48 mcg/mL (50-100)
[2019-02-14] MEDS: ASPIRIN 325 MG TABLET PO SCH (08:26)
[2019-02-14] MEDS: metFORMIN 500 MG TABLET PO SCH ×2 (08:27→17:29)
[2019-02-14] MEDS: amLODIPine BESYLATE 5 MG TABLET PO SCH (08:27)
[2019-02-14] MEDS: risperiDONE 0.5 MG TABLET. PO SCH (08:27)
[2019-02-14] MEDS: DIVALPROEX 125 MG CAP.SPRINK PO SCH ×2 (08:28→19:34)
[2019-02-14] MEDS: TAMSULOSIN 0.4 MG CAP.ER.24H. PO SCH (08:28)
--- NOTE | 2019-02-14 10:25 | NUR ---
Pt came into SW office to discuss his need to make a couple phone calls. SW explained to pt that he is not making any phone calls and asked what he wanted. Pt reports that he needs to get [facility] [place] and order 29 Twin Beds and 4 Garber size a beds with 3 foam mattresses and 1 regular mattress. Pt reports that these beds need to be delivered to [facility], [address] [place] [address] in [place], [place]. "I don't want to order anything expensive, but nothing too cheap either". SW double checked that address and found that [facility] [place], [place] pt was when he received the tic bites. Pt was correct on the address and location of the Resort. SW will notify pt of pt request in the event pt attempts to complete this request once discharged from [facility].
--- NOTE | 2019-02-14 10:45 | NUR ---
NICOLASA completed pt concurrent review. At this time, pt is only approved for 2 days with an update scheduled for Friday 02/16. NICOLASA will plan to notify in the event that she decides that placement needs to happen and to get the process started.
--- NOTE | 2019-02-14 13:16 | NUR ---
Patient is in the dining room for medications and assessment. He is calm, cooperative and compliant. He remains overly social and interactive with his peers, but has been able to be redirected. Asked a few times at the beginning of shift to use the phone to call [place] Jo[place]. This resume writer told him he was unable to make that phone call, so he proceeded to go to public health social worker office and ask her multiple times as well. Other than that, he was appropriate with phone use. Asked to call his a couple of times, and remained in day room so he could be supervised, without issue. No agitation, denies pain, denies SI/HI.
[2019-02-14 16:19] VITALS: BP 147/79
[2019-02-14] MEDS: risperiDONE 0.25 MG TABLET. PO SCH (17:29)
[2019-02-14] MEDS: SIMVASTATIN 20 MG TABLET PO SCH (19:34)
[2019-02-14] MEDS: traZODone 50 MG TABLET. PO SCH (19:34)
--- NOTE | 2019-02-14 20:32 | PDOC ---
Exam Note: Leo Note: Please also refer to the separate dictated note~for this date of service dictated separately.~Patient seen individually. Discussed the patient with Nursing staff reviewed the chart.~Reviewed interim history and current functioning. Reviewed vital signs,~Labs/ Radiology~and current medications noted below. Continue current treatment with the changes noted in the dictated addendum note Assessment: Vital Signs/I&O: Vital Signs Date Time Temp Pulse Resp B/P (MAP) Pulse Ox O2 Delivery O2 Flow Rate FiO2 02/14/19 16:19 98.2 68 18 147/79 (101) 96 02/13/19 05:50 Room Air I & O 02/13/19 02/13/19 02/14/19 15:00 23:00 07:00 Intake Total 720 ml 840 ml Balance 720 ml 840 ml Labs: Laboratory Tests Test 02/14/19 06:59 02/14/19 07:29 White Blood Count 8.9 x10^3/uL (4.0-11.0) Red Blood Count 4.74 x10^6/uL (4.30-5.70) Hemoglobin 14.6 g/dL (13.0-17.5) Hematocrit 43.1 % (39.0-53.0) Mean Corpuscular Volume 91 fL (79-100) Mean Corpuscular Hemoglobin 31 pg (25-35) Mean Corpuscular Hemoglobin Concent 34 g/dL (31-37) Red Cell Distribution Width 14.5 % (11.5-14.5) Platelet Count 196 x10^3/uL (140-400) Neutrophils (%) (Auto) 70 % (31-73) Lymphocytes (%) (Auto) 18 % (24-48) L Monocytes (%) (Auto) 9 % (0-9) Eosinophils (%) (Auto) 3 % (0-3) Basophils (%) (Auto) 1 % (0-3) Neutrophils # (Auto) 6.3 x10^3uL (1.8-7.7) Lymphocytes # (Auto) 1.6 x10^3/uL (1.0-4.8) Monocytes # (Auto) 0.8 x10^3/uL (0.0-1.1) Eosinophils # (Auto) 0.2 x10^3/uL (0.0-0.7) Basophils # (Auto) 0.1 x10^3/uL (0.0-0.2) Sodium Level 144 mmol/L (136-145) Potassium Level 4.0 mmol/L (3.5-5.1) Chloride Level 106 mmol/L (98-107) Carbon Dioxide Level 27 mmol/L (21-32) Anion Gap 11 (6-14) Blood Urea Nitrogen 19 mg/dL (8-26) Creatinine 0.8 mg/dL (0.7-1.3) Estimated GFR (Cockcroft-Gault) 94.5 BUN/Creatinine Ratio 24 (6-20) H Glucose Level 127 mg/dL (70-99) H Calcium Level 8.7 mg/dL (8.5-10.1) Total Bilirubin 0.5 mg/dL (0.2-1.0) Aspartate Amino Transferase (AST) 17 U/L (15-37) Alanine Aminotransferase (ALT) 25 U/L (16-63) Alkaline Phosphatase 55 U/L (46-116) Total Protein 6.5 g/dL (6.4-8.2) Albumin 3.2 g/dL (3.4-5.0) L Albumin/Globulin Ratio 1.0 (1.0-1.7) Valproic Acid Level 48 mcg/mL (50-100) L Valproic Acid Last Dose Date 02/13/19 Valproic Acid Last Dose Time 2100 Glucose (Fingerstick) 131 mg/dL (70-99) H Current Medications: Meds: Current Medications Medications (Trade) Dose Ordered Sig/Janet Route PRN Reason Start Time Stop Time Status Last Admin Dose Admin Divalproex Sodium (Depakote Sprinkles) 625 mg BID PO 02/14/19 21:00 02/14/19 19:34 I have reviewed the current psychotropics carefully including drug interactions. Risk benefit ratio favors no change other than as noted in my dictated progress note. Diagnosis: Problems: (1) Anxiety disorder (2) Impulse control disorder (3) Bipolar disorder, current episode manic severe with psychotic features GUERO KRUEGER MD Feb 14, 2019 20:32
--- NOTE | 2019-02-14 20:41 | PN ---
DATE: 02/11/2019 PSYCHIATRIC PROGRESS NOTE This late entry of 02/11 covers elements not covered in my initial note. SUBJECTIVE: I met with the patient on the evening of 02/11. Per BENJIE Potts, the patient slept reasonably the previous night, but remains somewhat grandiose, agitated, anxious, intrusive; gets quite upset and threatening staff at times. He received Ativan and Zyprexa in the morning, appeared psychotic per nursing report, was pointing to a Halloween pumpkin saying this was the [employer]. He has been constantly knocking on the door of the social service staff, wanting to be discharged, and I had a lengthy discussion with him about circumstances prompting admission, his treatment. I answered his questions. REVIEW OF SYSTEMS: Positive for some tiredness. No CV, , pulmonary, eye system symptoms on review. MENTAL STATUS EXAMINATION: Reasonably oriented. Speech coherent, at times a little pressured. Abstraction fair, computation impaired, language function intact, attention span short. Mood and affect somewhat grandiose, labile. LABORATORY DATA: Reviewed. IMPRESSION: Bipolar disorder, mixed with psychotic features. Rest unchanged. History of [place] spotted fever. He did receive Ativan p.r.n. We will increase the Risperdal from 0.25 mg 3 times a day to 0.5 mg in the morning, 0.75 mg at 1700 hours. Valproic acid level is subtherapeutic at 35. We will increase the Depakote Sprinkles from 250 b.i.d. to 500 b.i.d. Check CBC, CMP, valproic acid level in 3 days. Adjust further as clinically indicated. MAN Pamela KRUEGER MD DR: GERALDINE/steven JOB#: [id number] / [id number]
--- NOTE | 2019-02-14 22:49 | PN ---
DATE: 02/12/2019 PSYCHIATRIC PROGRESS NOTE. This late entry of 02/12/2019 covers the elements not covered in my initial note. SUBJECTIVE: I met with the patient in the evening of 02/12/2019. The patient slept 7-3/4 hours previous night. He has been agitated. Staff called me on the phone on 2 or 3 occasions, we added PRNs. He was upset regarding how he perceived the nursing staff to be assisting one of the other demented patients. He received Ativan and Zyprexa Zydis twice p.r.n. By the time I met with him in the evening, he was more cooperative. REVIEW OF SYSTEMS: No CV, , pulmonary, eye system symptoms on review, somewhat sedated consequent to p.r.n. Ativan. MENTAL STATUS EXAM: Reasonably oriented. Speech is coherent, abstraction fair, computation impaired, language function intact, attention span short. Mood and affect somewhat labile, anxious. LABORATORY DATA: Reviewed. IMPRESSION: Unchanged from initial note. PLAN: No change from initial note. We have increased the Depakote. We will follow labs. Risperdal has been increased as well. We will communicate with his primary care physician on Thursday to update them on the patient's diagnosis of bipolar disorder and current treatment. MAN Pamela KRUEGER MD DR: GERALDINE/steven JOB#: [id number] / [id number]
--- NOTE | 2019-02-14 22:51 | PN ---
DATE: 02/13/2019 PSYCHIATRIC PROGRESS NOTE This late entry 02/13/2019 covers the elements not covered in my initial note. SUBJECTIVE: I met with the patient in the evening of 02/13/2019. The patient slept 7-3/4 hours previous night. He has been agitated around breakfast the day before intrusive, better during the day on 02/13/2019, attending groups. Received Ativan and Zyprexa twice a day before, none on 02/13/2019. He is quite fixated on different religions as I met with him in the evening. REVIEW OF SYSTEMS: No CV, , pulmonary, eye system symptoms on review. MENTAL STATUS EXAM: Oriented reasonably. Speech coherent, still somewhat pressured. Abstraction fair, computation impaired, language function intact, attention span short. Mood and affect somewhat anxious, grandiose. LABORATORY DATA: Reviewed. IMPRESSION: Unchanged from initial note. PLAN: No change from initial note. Adjust Depakote, post next set of labs. Continue Risperdal. MAN Pamela KRUEGER MD DR: GERALDINE/steven JOB#: [id number] / [id number]
--- NOTE | 2019-02-14 23:14 | NUR ---
Pt sitting in day room at shift change. Pt restless, irritable, intrusive with staff and the cares of other patients. Pt became agitated with staff while they were attempting to calm another pt, then became angry and demanding to be let out of the day room. Staff told pt that he needed to wait for his HS medications. Pt then urinated in the day room by the West doors. Pt cooperative with assessment and compliant with HS medications. After meds and assessment, pt was directed to his room where he prepared for bed and layed down for the night.
[2019-02-15 05:03] VITALS: BP 120/61
[2019-02-15] MEDS: TAMSULOSIN 0.4 MG CAP.ER.24H. PO SCH (07:51)
[2019-02-15] MEDS: ASPIRIN 325 MG TABLET PO SCH (07:51)
[2019-02-15] MEDS: metFORMIN 500 MG TABLET PO SCH ×2 (07:51→16:29)
[2019-02-15] MEDS: amLODIPine BESYLATE 5 MG TABLET PO SCH (07:52)
[2019-02-15] MEDS: DIVALPROEX 125 MG CAP.SPRINK PO SCH ×2 (07:52→19:41)
[2019-02-15] MEDS: risperiDONE 0.5 MG TABLET. PO SCH (07:52)
--- NOTE | 2019-02-15 15:01 | NUR ---
NURSING NOTE PT WAS IN DINNING ROOM THIS AM UPON MEDICATION ADMINISTRATION. PT WAS A&O X4 THIS AM. PT WAS COMPLIANT WITH MEDICATIONS. PT VOICED CONCERN THIS AM ABOUT THE NIGHT NURSE STATING THAT WHEN SHE WAS GETTING HIS PILLS READY, HE ASKED TO USE THE RESTROOM. PT STATES "THE NURSE TOLD ME I HAD TO WAIT UNTIL AFTER I TOOK THE PILLS, I TOLD HER I HAD TO GO AND THAT I WAS GOING TO PEE ON THE FLOOR IF SHE DIDNT LET ME GO TO THE BATHROOM, SHE TOLD ME GO AHEAD I DONT CARE, SO I DID TO PROVE MY POINT". PT HAS BEEN CALM AND COOPERATIVE TODAY BUT INTRUSIVE TO OTHERS AND THIER CARE. PT WORRIES ABOUT OTHERS AND DEMANDS HELP FOR THEM WHEN NOT NEEDED. WILL CONTINUE TO MONITOR. BENJIE FELIZ.
[2019-02-15 16:09] VITALS: BP 133/79
[2019-02-15] MEDS: risperiDONE 0.25 MG TABLET. PO SCH (16:31)
--- NOTE | 2019-02-15 18:38 | NUR ---
NURSING NOTE PT TOOK PHONE FROM ANOTHER PATIENT AND CALLED 911. SENIOR RESEARCH EXECUTIVE CALLED NON-EMERGENT NUMBER TO CONFIRM THAT EVERYTHING WAS OKAY. BENJIE FELIZ.
[2019-02-15] MEDS: SIMVASTATIN 20 MG TABLET PO SCH (19:41)
[2019-02-15] MEDS: traZODone 50 MG TABLET. PO SCH (19:41)
--- NOTE | 2019-02-15 20:35 | PDOC ---
Exam Note: Leo Note: Please also refer to the separate dictated note~for this date of service dictated separately.~Patient seen individually. Discussed the patient with Nursing staff reviewed the chart.~Reviewed interim history and current functioning. Reviewed vital signs,~Labs/ Radiology~and current medications noted below. Continue current treatment with the changes noted in the dictated addendum note Assessment: Vital Signs/I&O: Vital Signs Date Time Temp Pulse Resp B/P (MAP) Pulse Ox O2 Delivery O2 Flow Rate FiO2 02/15/19 16:09 98.2 66 18 133/79 (97) 97 02/15/19 05:03 Room Air I & O 02/14/19 02/14/19 02/15/19 15:00 23:00 07:00 Intake Total 960 ml 600 ml Balance 960 ml 600 ml Labs: Laboratory Tests Test 02/15/19 07:25 02/15/19 16:45 Glucose (Fingerstick) 122 mg/dL (70-99) H 137 mg/dL (70-99) H Current Medications: Meds: Current Medications Medications (Trade) Dose Ordered Sig/Janet Route PRN Reason Start Time Stop Time Status Last Admin Dose Admin Divalproex Sodium (Depakote Sprinkles) 625 mg BID PO 02/14/19 21:00 02/15/19 19:41 I have reviewed the current psychotropics carefully including drug interactions. Risk benefit ratio favors no change other than as noted in my dictated progress note. Diagnosis: Problems: (1) Anxiety disorder (2) Impulse control disorder (3) Bipolar disorder, current episode manic severe with psychotic features GUERO KRUEGER MD Feb 15, 2019 20:35
--- NOTE | 2019-02-15 22:55 | NUR ---
Nursing Note The patient was located in the hallways and day room for his medication and assessment. The patient was compliant with his medication and was appropriate during interactions with this nurse. the patient was very concerned about other patients and was told by this nurse that it was appreciated that he cared about other patients but to try to not focus on others while he is here. The patient is currently sleeping in his room.
--- NOTE | 2019-02-16 02:10 | NUR ---
Nursing Note The patient was up and out of bed wandering the unit. The patient was given PRN Trazodone. The patient is currently located in his bed.
[2019-02-16 05:16] VITALS: BP 144/77
[2019-02-16] MEDS: risperiDONE 0.5 MG TABLET. PO SCH (08:16)
[2019-02-16] MEDS: metFORMIN 500 MG TABLET PO SCH ×2 (08:16→17:22)
[2019-02-16] MEDS: TAMSULOSIN 0.4 MG CAP.ER.24H. PO SCH (08:16)
[2019-02-16] MEDS: ASPIRIN 325 MG TABLET PO SCH (08:17)
[2019-02-16] MEDS: DIVALPROEX 125 MG CAP.SPRINK PO SCH ×2 (08:17→20:15)
[2019-02-16] MEDS: amLODIPine BESYLATE 5 MG TABLET PO SCH (08:17)
--- NOTE | 2019-02-16 09:49 | NUR ---
NURSING NOTE PT WAS IN DINNING ROOM THIS AM UPON MEDICATION ADMINISTRATION AND ASSESSMENT. NIGHT NURSE STATED THAT PT DID NOT SLEEP WELL LAST NIGHT AND WAS GIVEN PRN TRAZODONE. PT WAS COMPLIANT WITH MEDICATIONS. PT HAS ASKED FOR THE PHONE SEVERAL TIMES THUS FAR TODAY TO MAKE "IMPORTANT PHONE CALLS". PT WAS DENIED PHONE PRIVILEGES THIS AM UNTIL AFTER HIS MEETING WITH THE DOCTOR SO THAT HE CAN BE MONITORED WHILE ON THE PHONE. PT WAS IN THE HALLWAY PUSHING ANOTHER PT AROUND IN HIS WHEELCHAIR. PT IS VERY INVOLVED WITH OTHER PEOPLE AND WAS INSTRUCTED THAT STAFF WILL HELP OTHER PATIENTS AND THAT EVERYONE IS TAKEN CARE OF. PT HAS BEEN CALM AND COOPERATIVE FOR THE MOST PART THUS FAR, DID STATE THAT HE IS MAKING HIS PICK HIM UP TODAY. PT DOES NOT HAVE A DISCHARGE DATE AT THIS TIME. WILL CONTINUE TO MONITOR. BENJIE FELIZ.
--- NOTE | 2019-02-16 11:01 | NUR ---
NURSING NOTE CONSTRUCTION WORKERS WORKING ON FLOOR TODAY, PT KNOCKED ON DOOR, ASKED WORKER FOR HIS CELL PHONE, PT GOT CELL PHONE FROM PAINTERS AND BEGAN CALLING RANDOM NUMBERS, ENDED UP CALLING MAINTENANCE HERE AT THE HOSPITAL. PT IS NOW TO BE IN LINE OF SIGHT AT ALL TIMES AND IS NOT TO HAVE A PHONE WITHOUT SUPERVISION. BENJIE FELIZ.
[2019-02-16 15:43] VITALS: BP 155/71
[2019-02-16] MEDS ORDERED: traZODone 100 MG TABLET. PO PRN (17:15)
[2019-02-16] MEDS: risperiDONE 0.25 MG TABLET. PO SCH (17:22)
[2019-02-16] MEDS: SIMVASTATIN 20 MG TABLET PO SCH (20:15)
--- NOTE | 2019-02-16 20:39 | PDOC ---
Exam Note: Leo Note: Please also refer to the separate dictated note~for this date of service dictated separately.~Patient seen individually. Discussed the patient with Nursing staff reviewed the chart.~Reviewed interim history and current functioning. Reviewed vital signs,~Labs/ Radiology~and current medications noted below. Continue current treatment with the changes noted in the dictated addendum note Assessment: Vital Signs/I&O: Vital Signs Date Time Temp Pulse Resp B/P (MAP) Pulse Ox O2 Delivery O2 Flow Rate FiO2 02/16/19 15:43 98.5 64 16 155/71 (99) 95 02/15/19 05:03 Room Air I & O 02/15/19 02/15/19 02/16/19 15:00 23:00 07:00 Intake Total 720 ml 600 ml Balance 720 ml 600 ml Labs: Laboratory Tests Test 02/16/19 07:25 02/16/19 17:04 Glucose (Fingerstick) 115 mg/dL (70-99) H 112 mg/dL (70-99) H Current Medications: Meds: Current Medications Medications (Trade) Dose Ordered Sig/Janet Route PRN Reason Start Time Stop Time Status Last Admin Dose Admin Trazodone HCl (Desyrel) 100 mg QHS PO 02/16/19 21:00 02/16/19 20:15 I have reviewed the current psychotropics carefully including drug interactions. Risk benefit ratio favors no change other than as noted in my dictated progress note. Diagnosis: Problems: (1) Anxiety disorder (2) Impulse control disorder (3) Bipolar disorder, current episode manic severe with psychotic features GUERO KRUEGER MD Feb 16, 2019 20:39
[2019-02-16] MEDS ORDERED: traZODone 100 MG TABLET. PO SCH (21:00)
--- NOTE | 2019-02-16 23:40 | NUR ---
Pt sitting quietly in the day room at shift change. Pt calm, pleasant during interaction. Pt remains LOS at this time. Pt cooperative with assessment and compliant with medications.
--- NOTE | 2019-02-17 02:05 | PN ---
DATE: 02/14/2019 PSYCHIATRIC PROGRESS NOTE This late entry of 02/14covers elements not covered in my initial note. SUBJECTIVE: I met with the patient on the evening of 02/14. Per BENJIE Murrieta, the patient slept 6-1/4 hours the previous night. We called the patient's primary care physician's office to update them on his progress, but his primary care physician is on a mission trip for the next 2 weeks, and we did update them the information about his diagnosis, medications, discharge plans. Valproic acid level is 48. Previous night, he was difficult in the shower, was writing notes, sticking them on the windows, somewhat grandiose at times, but no active suicidal or homicidal ideation. REVIEW OF SYSTEMS: No CV, , pulmonary, eye system symptoms on review. MENTAL STATUS EXAMINATION: Oriented reasonably. Speech coherent, somewhat pressured; he was talking at length about Muslims and how he trusts them better than other religions including Islam. Remains somewhat grandiose. Speech coherent, rapid. Abstraction fair, computation impaired, language function intact, attention span short. I discussed his diagnosis, medications adjustments and discharge plans at great length with him repeatedly. IMPRESSION: Bipolar disorder, manic with psychotic features. Rest unchanged. PLAN: Valproic acid level subtherapeutic. We will increase Depakote to 625 mg b.i.d. Check CBC, CMP, valproic acid level in 3 days. Rest unchanged for now. GUERO KRUEGER MD DR: GERALDINE/steven JOB#: [id number] / [id number]
[2019-02-17] MEDS ORDERED: ACET325T9 PO (02:07)
--- NOTE | 2019-02-17 02:07 | PN ---
DATE: 02/15/2019 PSYCHIATRIC PROGRESS NOTE This late entry 02/15/2019 covers elements not covered in my initial note. SUBJECTIVE: I met with the patient evening of 02/15/2019. The patient slept some 5-1/4 hours previous night, remains somewhat hyperverbal, had pulled the telephone and called 911 the night before because he was misperceived the staff, handling another demented patient and felt they were in danger. No CV, , pulmonary, eye system symptoms on review. MENTAL STATUS EXAM: Reasonably oriented. Speech coherent, less pressured. Abstraction fair, computation impaired, language function intact, attention span short. Mood and affect remains somewhat grandiose. No active suicidal or homicidal ideation. LABORATORY DATA: Reviewed. IMPRESSION: Unchanged from initial note. PLAN: No change from initial note. We will check a valproic acid level, adjust to reach therapeutic level. MAN Pamela KRUEGER MD DR: GERALDINE/steven JOB#: [id number] / [id number]
[2019-02-17] MEDS ORDERED: LORA0.5T96 PO ×2 (02:08)
[2019-02-17] MEDS ORDERED: METH28OI2 TP (02:09)
[2019-02-17] MEDS ORDERED: MAG355OR17 PO (02:09)
[2019-02-17] MEDS ORDERED: MAGN2400 PO (02:09)
[2019-02-17] MEDS ORDERED: OLAN5TAB9 PO (02:10)
[2019-02-17] MEDS ORDERED: RISP0.5T3 PO ×2 (02:10)
[2019-02-17] MEDS ORDERED: TRAZ-86 PO ×2 (02:11→02:12)
[2019-02-17 05:55] VITALS: BP 163/92
[2019-02-17 07:58] LABS: BASO % 1 % (0-3); EOS # 0.2 x10^3/uL (0.0-0.7); EOS % 3 % (0-3); HEMATOCRIT 42.3 % (39.0-53.0); HEMOGLOBIN 14.5 g/dL (13.0-17.5); LYMPH % 26 % (24-48); MEAN CORPUSCULAR HEMOGLOBIN 31 pg (25-35); MEAN CORPUSCULAR HGB CONC 34 g/dL (31-37); MEAN CORPUSCULAR VOLUME 91 fL (79-100); MONO # 0.7 x10^3/uL (0.0-1.1); MONO % 10 % (0-9); NEUT # 4.7 x10^3uL (1.8-7.7); NEUT % 62 % (31-73); PLATELET COUNT 190 x10^3/uL (140-400); RED BLOOD COUNT 4.66 x10^6/uL (4.30-5.70); RED CELL DISTRIBUTION WIDTH 14.3 % (11.5-14.5); WHITE BLOOD COUNT 7.7 x10^3/uL (4.0-11.0)
[2019-02-17 08:03] LABS: ALBUMIN 3.2 g/dL (3.4-5.0); ALBUMIN/GLOBULIN RATIO 0.9 (1.0-1.7); ALK PHOS 56 U/L (46-116); ALT (SGPT) 33 U/L (16-63); ANION GAP 7 (6-14); AST (SGOT) 24 U/L (15-37); BLOOD UREA NITROGEN 22 mg/dL (8-26); BUN/CREATININE RATIO 24 (6-20); CALCIUM 8.9 mg/dL (8.5-10.1); CARBON DIOXIDE 30 mmol/L (21-32); CHLORIDE 105 mmol/L (98-107); CREATININE 0.9 mg/dL (0.7-1.3); GFR 82.5; GLUCOSE 126 mg/dL (70-99); POTASSIUM 4.2 mmol/L (3.5-5.1); SODIUM 142 mmol/L (136-145); TOTAL BILIRUBIN 0.5 mg/dL (0.2-1.0); TOTAL PROTEIN 6.6 g/dL (6.4-8.2)
[2019-02-17] MEDS: ASPIRIN 325 MG TABLET PO SCH (08:06)
[2019-02-17] MEDS: DIVALPROEX 125 MG CAP.SPRINK PO SCH (08:06)
[2019-02-17] MEDS: metFORMIN 500 MG TABLET PO SCH ×2 (08:06→16:34)
[2019-02-17] MEDS: TAMSULOSIN 0.4 MG CAP.ER.24H. PO SCH (08:06)
[2019-02-17] MEDS: risperiDONE 0.5 MG TABLET. PO SCH (08:07)
[2019-02-17] MEDS: amLODIPine BESYLATE 5 MG TABLET PO SCH (08:07)
[2019-02-17 08:10] LABS: VAL ACID 63 mcg/mL (50-100)
--- NOTE | 2019-02-17 09:55 | NUR ---
WEEKLY ACTIVITY THERAPY NOTE Date of Admission:02/09/2019 Date of AT Assessment: 02/13/2019 Goal aimed:to increase leisure engagement and goal setting Initial goal: Pt. will participate in at least five Activity Therapy groups per week. Weekly progress towards goal: achieved, 09/15 Group participation level: moderate to full Weekly highlights: joining Thursday sermon/gospel songs group- appropriately tearful Behaviors observed: occasional sexual undertones while in group, holding female hand with arm around her Thursday, trying to help others, alerts staff of fellow Pt's behaviors, chatty, reminders to stay on task/ topic, easily redirected, line of sight as of Thursday Plan: no change to goal Beneficial adaptations: male groups, reminders about group times, calendar for room, deck of cards for room
--- NOTE | 2019-02-17 10:55 | NUR ---
NICOLASA contacted pt to discuss the insurance refusal to continue payment for pt stay. The recommendation was partial hospitalization. Pt is concerned about taking pt home as she knows that he is very livid with her and concerns that she is not going to be able to maintain pt from driving or leaving the house. NICOLASA informed pt that NICOLASA did send referrals to facilities that could potentially take pt right away. One being [facility] who pt has an appointment for tomorrow at 10:00. NICOLASA explained that in the event that placement cannot take pt, there are options for day programs to aid in a place for pt to go and pt not having to worry about watching him with the exception of evenings. Pt and NICOLASA will keep in contact tomorrow and look at discharge later in the afternoon. Addendum: 02/17/19 at 1118 by MAYANK BALDWIN Please note that this note took place yesterday 02/16/19 @ 1600.
--- NOTE | 2019-02-17 14:31 | NUR ---
NICOLASA received a call from Meme, commercial property administrator at the [facility], who reported that they are more than willing to take pt. She would like for tomorrow AM but understands that insurance is not paying for pt to remain on the unit. NICOLASA will contact insurance and pt to see discuss options. It is NICOLASA understanding that with the Peer to Peer being denied, yesterday was pt last paid day. Pt reports that she can sign paperwork today and that would not be a problem. NICOLASA encouraged pt to get paperwork signed as soon as possible and mentioned that The [facility] would be setting up transport so that pt family would not have to worry about it. So as it stands pt will be able to discharged today.
--- NOTE | 2019-02-17 14:45 | NUR ---
Nursing note: Pt has been in the day room for most of the day. He has been calm, cooperative, and compliant with his meds and assessment. He has had no behaviors today. Will continue to monitor.
--- NOTE | 2019-02-17 15:07 | NUR ---
[facility] Social Work Discharge Planning Form Patient Name TERA TIERNEY Admit Date: 02/09/19 DISCHARGE PLAN Discharge Destination: Pt will discharge to the [facility] Assessment: None noted Level II Assessment: Note noted Transportation: The [facility] to pick pt up around 1600. Special Instructions/Notes: Please fax all discharge orders and the medication list to the fax number listed below. DISCHARGE TO FACILITY Facility: [facility] Address: [facility] [place] [address] Contact Name: Katlyn Pritchard, Sheet Writer: Contact Name: Lou Martino, DON: PCP: Dr. Lemon
--- NOTE | 2019-02-17 15:22 | NUR ---
SW contacted pt to inform her that pt is not happy about going to placement versus giong home. SW explained that pt could not go home as pt is not able to maintain his behaviors which puts himself and other's in jeopardy. Pt was very blaming of his "[place] daughter" and stated other things such as "he will get a process automation engineer and let his have everything and just move to [place]. All my money will go to the [place] and no one will have to worry about getting a dime from me". Although social work read him notes and gave him examples of things that he has done, pt replied that it was "bullshit" and "false information". Pt understands that pt is not happy but also realizes that in this condition, he will not be safe and she will not be able to prevent pt from doing things he shouldn't be doing. Pt will plan to head to the [facility] and get paperwork signed.
[2019-02-17] MEDS: LORazepam 0.5 MG TABLET PO PRN (15:35)
[2019-02-17 16:14] VITALS: BP 138/75
--- NOTE | 2019-02-17 16:25 | NUR ---
Patient scheduled to leave at 1600. 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 Items were not in the safe and in the safe log they were signed out 02/12, presumably to be returned to patients spouse. No documentation was found on the [facility] belonging sheet.
[2019-02-17] MEDS: risperiDONE 0.25 MG TABLET. PO SCH (16:34)
--- NOTE | 2019-02-17 16:51 | NUR ---
Transition Record was faxed to follow-up provider with the following elements: Reason for admission, procedures, tests, principal diagnosis, pending studies, patient instructions, 03/11 contact information for unit, phone number to obtain pending test results, plan for follow-up care, physician follow-up, advanced directive information, and medication list with dose, duration and instructions. This information was included in the following documents: History and physical, lab results, study results, progress notes, social work planning form, DC instruction form, patient visit summary, and medication reconciliation form. Date & time record faxed: 02/17/19 [phone] Record faxed to: [facility] [phone] Record discussed with/ report given to: PAVEL Ghotra
--- NOTE | 2019-02-17 20:44 | PDOC ---
Exam Note: Leo Note: Please also refer to the separate dictated note~for this date of service dictated separately.~Patient seen individually. Discussed the patient with Nursing staff reviewed the chart.~Reviewed interim history and current functioning. Reviewed vital signs,~Labs/ Radiology~and current medications noted below. Continue current treatment with the changes noted in the dictated addendum note Assessment: Vital Signs/I&O: Vital Signs Date Time Temp Pulse Resp B/P (MAP) Pulse Ox O2 Delivery O2 Flow Rate FiO2 02/17/19 16:14 97.4 64 16 138/75 (96) 99 02/15/19 05:03 Room Air I & O 02/16/19 02/16/19 02/17/19 15:00 23:00 07:00 Intake Total 960 ml 420 ml Balance 960 ml 420 ml Labs: Laboratory Tests Test 02/17/19 07:26 02/17/19 07:49 02/17/19 08:15 White Blood Count 7.7 x10^3/uL (4.0-11.0) Red Blood Count 4.66 x10^6/uL (4.30-5.70) Hemoglobin 14.5 g/dL (13.0-17.5) Hematocrit 42.3 % (39.0-53.0) Mean Corpuscular Volume 91 fL (79-100) Mean Corpuscular Hemoglobin 31 pg (25-35) Mean Corpuscular Hemoglobin Concent 34 g/dL (31-37) Red Cell Distribution Width 14.3 % (11.5-14.5) Platelet Count 190 x10^3/uL (140-400) Neutrophils (%) (Auto) 62 % (31-73) Lymphocytes (%) (Auto) 26 % (24-48) Monocytes (%) (Auto) 10 % (0-9) H Eosinophils (%) (Auto) 3 % (0-3) Basophils (%) (Auto) 1 % (0-3) Neutrophils # (Auto) 4.7 x10^3uL (1.8-7.7) Lymphocytes # (Auto) 2.0 x10^3/uL (1.0-4.8) Monocytes # (Auto) 0.7 x10^3/uL (0.0-1.1) Eosinophils # (Auto) 0.2 x10^3/uL (0.0-0.7) Basophils # (Auto) 0.0 x10^3/uL (0.0-0.2) Sodium Level 142 mmol/L (136-145) Potassium Level 4.2 mmol/L (3.5-5.1) Chloride Level 105 mmol/L (98-107) Carbon Dioxide Level 30 mmol/L (21-32) Anion Gap 7 (6-14) Blood Urea Nitrogen 22 mg/dL (8-26) Creatinine 0.9 mg/dL (0.7-1.3) Estimated GFR (Cockcroft-Gault) 82.5 BUN/Creatinine Ratio 24 (6-20) H Glucose Level 126 mg/dL (70-99) H Calcium Level 8.9 mg/dL (8.5-10.1) Total Bilirubin 0.5 mg/dL (0.2-1.0) Aspartate Amino Transferase (AST) 24 U/L (15-37) Alanine Aminotransferase (ALT) 33 U/L (16-63) Alkaline Phosphatase 56 U/L (46-116) Total Protein 6.6 g/dL (6.4-8.2) Albumin 3.2 g/dL (3.4-5.0) L Albumin/Globulin Ratio 0.9 (1.0-1.7) L Valproic Acid Level 63 mcg/mL (50-100) Valproic Acid Last Dose Date 02/15/19 Valproic Acid Last Dose Time 2100 Glucose (Fingerstick) 109 mg/dL (70-99) H Ammonia 19 mcmol/L (11-34) Current Medications: Meds: Current Medications Medications (Trade) Dose Ordered Sig/Janet Route PRN Reason Start Time Stop Time Status Last Admin Dose Admin Trazodone HCl (Desyrel) 100 mg QHS PO 02/16/19 21:00 02/17/19 17:01 DC 02/16/19 20:15 I have reviewed the current psychotropics carefully including drug interactions. Risk benefit ratio favors no change other than as noted in my dictated progress note. Diagnosis: Problems: (1) Anxiety disorder (2) Impulse control disorder (3) Bipolar disorder, current episode manic severe with psychotic features GUERO KRUEGER MD Feb 17, 2019 20:44
--- NOTE | 2019-02-18 22:54 | DS ---
DATE OF DISCHARGE: 02/17/2019 DISCHARGE SUMMARY AND PSYCHIATRIC PROGRESS NOTE This late entry, 02/17/2019, covers elements not covered in my initial note. REASON FOR ADMISSION: Please refer to the admission history for details. Briefly, the patient is a 73-year-old male, referred to us from [facility] ED on account of agitation, aggression, and a history of recent [place] spotted fever diagnosis with paranoia. He had not been eating or sleeping, was anxious, making threats towards his , active hallucinations, delusions. He was harrassing his ex-boss driving to [place]. He had failed outpatient psychiatric interventions resulting in this referral. SIGNIFICANT FINDINGS AND CLINICAL COURSE: Following admission, the patient was seen daily individually by myself from a psychiatric standpoint, medical followup with Dr. Clancy. He had a neuropsychological evaluation with Dr. Ramirez with the diagnostic impression of delirium possibly due to [place] spotted fever. He did have some cognitive deficits, but reasonably oriented, though he remained grandiose, hyperverbal, paranoid, delusional. He responded well to [employer] music. Adjustments were made in his psychotropics for the bipolar diagnosis and he seemed to respond to a combination of Depakote Sprinkle 625 mg b.i.d. with a level of 63, therapeutic. AST, ALT, ammonia were unremarkable. He was also on Risperdal 0.5 mg at 0900, 0.75 mg at 1700; trazodone 100 mg at bedtime, august repeat x 1; Zyprexa p.r.n., Ativan p.r.n. Prior to discharge, staff were to complete the mini mental status exam and SLUMS scale. While on the unit, he would frequently call 911, was grandiose, intrusive, all of which gradually improved with the adjustments in his psychotropics. REVIEW OF SYSTEMS: Prior to discharge on 02/17/2019, no CV, , pulmonary, eye system symptoms on review. MENTAL STATUS EXAM: The patient was reasonably oriented. Speech coherent, still somewhat pressured. Abstraction fair. Computation impaired, language function intact, attention span short. Mood and affect remain somewhat grandiose, but improved. LABORATORY DATA: Reviewed. No suicidal or homicidal ideation at discharge. FINAL DIAGNOSES: Bipolar disorder, mixed with psychotic features, in partial remission; delirium due to general medical condition; history of [place] spotted fever; anxiety disorder, unspecified; impulse control disorder, unspecified. Rest unchanged from admission. DISCHARGE MEDICATIONS: Please refer to the MRAD. DISCHARGE INSTRUCTIONS: Outpatient psychiatric and medical followup at [facility]. Time spent on discharge day management greater than 30 minutes. MAN Pamela KRUEGER MD DR: GERALDINE/stveen JOB#: [id number] / [id number]
--- NOTE | 2019-02-19 01:12 | PN ---
DATE: 02/16/2019 PSYCHIATRIC PROGRESS NOTE This late entry 02/16/2019 covers the elements not covered in my initial note. SUBJECTIVE: I met with the patient evening of 02/16/2019. Per BENJIE Bassett, the patient slept 2-1/2 hours previous night. Trazodone was of no help even though we have recently increased it and we will go ahead and increase it further to 100 mg at bedtime p.r.n., august repeat x 1. Reportedly, he took the cell phone from a construction supervisor on the unit and tried to call 911. Previously had called 911. Resistive to cares. I had a telephone conference with Dmitriy villanueva, psychiatrist who denied any further hospitalization recommending day program admission. REVIEW OF SYSTEMS: No CV, , pulmonary, eye system symptoms on review. MENTAL STATUS EXAM: Reasonably oriented. Speech coherent, somewhat pressured. Abstraction fair, computation impaired, language function intact, attention span short. Mood and affect remain somewhat hypomanic, but improved. LABORATORY DATA: Reviewed. IMPRESSION: Unchanged from initial note. PLAN: Check valproic acid level in the morning of 02/17/2019, possibly transition to a lower level of care. Discussed with social service staff and BENJIE Dhillon, nurse enterprise applications manager. GUERO KRUEGER MD DR: GERALDINE/steven JOB#: [id number] / [id number]
== END 2019-02-17 17:01 | DRG 885 ==
LOC: GEROPSY 05:19
PROVIDERS: ADMIT Psychiatry & Neurology Psychiatry; ATTEND Psychiatry & Neurology Psychiatry
DX: F31.64 Bipolar disorder, current episode mixed, severe, with psychotic features (principal); E44.0 Moderate protein-calorie malnutrition; F05 Delirium due to known physiological condition; F41.9 Anxiety disorder, unspecified; Z68.30 Body mass index [BMI] 30.0-30.9, adult; E11.9 Type 2 diabetes mellitus without complications; E78.5 Hyperlipidemia, unspecified; N40.0 Benign prostatic hyperplasia without lower urinary tract symptoms; I10 Essential (primary) hypertension; Z79.899 Other long term (current) drug therapy; F03.90 Unspecified dementia, unspecified severity, without behavioral disturbance, psychotic disturbance, mood disturbance, and anxiety; F63.9 Impulse disorder, unspecified
CPT/HCPCS: 36415; 80053; 80061; 80164; 82140; 82306; 82607; 82947; 83036; 83540; 83550; 83735; 84436; 84443; 84480; 85025; 85651; 86592